=== PATIENT | male | born 1990 | race Caucasian/White ===

== ENCOUNTER 2017-11-12 23:11 | Inpatient (IN) | payer SELFPAY ==
[~2017-11-12] VITALS: Ht 172.7 cm; Wt 52.6 kg
[2017-11-12 23:32] VITALS: BP 120/59; PULSE 129; RESP 20; TEMP 98; O2SAT 96
--- NOTE | 2017-11-12 23:52 | PD ---
HPI Chief Complaint: GI Complaint Time Seen by Provider: 23:50 Travel History International Travel<30 days: No Contact w/Intl Traveler<30days: No Traveled to known affect area: No History of Present Illness HPI Family gives most of the history as the patient was actively vomiting. Apparently for about the past week or so the patient has had a dry cough. Follow by nausea and vomiting over the last 2 days or so. Per family the patient has not been able to tolerate any p.o. over the last 2 days. Per family has not missed any of his sliding scale insulin. Prior to all of this happening the patient denies having any type of headache visual changes chest pain abdominal pain or back pain. However during the episodes of nausea vomiting he did discover that he had epigastric area pain. Epigastric pain was sharp, and sometimes radiated toward his back, tender to palpation, and it did not seem to have any alleviating or aggravating factors. No known drug allergy Past medical history significant for as aspergers disease, seizures, diabetes, ADHD, and bilateral tympanostomy tubes PFSH Past Medical History ADHD: Yes Diabetes: Yes Patient Takes Glucophage: No Diminished Hearing: No Neurologic: Yes (hypertonia, terets, asburgers) Seizures: Yes Tetanus Vaccination: Unknown Influenza Vaccination: No Past Surgical History Tympanostomy Tube: Yes (in b/l ears) Social History Alcohol Use: No Tobacco Use: No Substance Use: No Allergies-Medications (Allergen,Severity, Reaction): Coded Allergies: No Known Allergies (Unverified , 11/12/17) Reported Meds & Prescriptions Reported Meds & Active Scripts Active Reported Lantus Inj (Insulin Glargine) 1,000 Unit/10 Ml Vial 10 Units SQ HS Novolog Flexpen Inj (Insulin Aspart) 300 Unit/3 Ml Pen 5 Units SQ Review of Systems General / Constitutional: No: Fever Eyes: No: Visual changes HENT: No: Headaches Cardiovascular: No: Chest Pain or Discomfort Respiratory: No: Shortness of Breath Gastrointestinal: Positive: Nausea, Vomiting Genitourinary: No: Dysuria Musculoskeletal: No: Pain Skin: No Rash Neurologic: No: Weakness Psychiatric: No: Depression Endocrine: No: Polydipsia Hematologic/Lymphatic: No: Easy Bruising Physical Exam Narrative GENERAL: SKIN: Warm and dry. HEAD: Atraumatic. Normocephalic. EYES: Pupils equal and round. No scleral icterus. No injection or drainage. ENT: No nasal bleeding or discharge. Mucous membranes pink and moist. NECK: Trachea midline. No JVD. CARDIOVASCULAR: Regular rate and rhythm. RESPIRATORY: No accessory muscle use. Clear to auscultation. Breath sounds equal bilaterally. GASTROINTESTINAL: Abdomen soft, non-tender, nondistended. MUSCULOSKELETAL: Extremities without clubbing, cyanosis, or edema. No obvious deformities. NEUROLOGICAL: Awake and alert. No obvious cranial nerve deficits. Motor grossly within normal limits. Five out of 5 muscle strength in the arms and legs. Normal speech. PSYCHIATRIC: Appropriate mood and affect; insight and judgment normal. Data Data Last Documented VS Vital Signs Date Time Temp Pulse Resp B/P (MAP) Pulse Ox O2 Delivery O2 Flow Rate FiO2 11/12/17 23:32 98.0 129 20 120/59 (79) 96 Orders Orders Water Treatment Technician / Telemetry [id number] (11/12/17 23:53) ^ Insert Iv (11/12/17 23:53) Lipase (11/12/17 23:53) Troponin I (11/12/17 23:53) Complete Blood Count With Diff (11/12/17 23:53) Comprehensive Metabolic Panel (11/12/17 23:53) Beta Hydroxybutyrate (Acetone) (11/12/17 23:53) Sodium Chlor 0.9% 1000 Ml Inj (Ns 1000 M (11/12/17 23:53) Sodium Chlor 0.9% 1000 Ml Inj (Ns 1000 M (11/12/17 23:53) Urinalysis - C+S If Indicated (11/12/17 23:53) Chest, Single Ap (11/12/17 ) Blood Gas Venous (Vbg) (11/12/17 23:53) Sodium Chlor 0.9% 1000 Ml Inj (Ns 1000 M (11/13/17 01:00) Sodium Chlor 0.9% 250 Ml Inj (Ns 250 Ml (11/13/17 01:00) Admit Order (Ed Use Only) (11/13/17 02:32) Labs Laboratory Tests Test 11/13/17 00:00 11/13/17 00:02 White Blood Count 29.2 TH/MM3 Red Blood Count 6.19 MIL/MM3 Hemoglobin 18.6 GM/DL Hematocrit 53.6 % Mean Corpuscular Volume 86.6 FL Mean Corpuscular Hemoglobin 30.0 PG Mean Corpuscular Hemoglobin Concent 34.6 % Red Cell Distribution Width 13.6 % Platelet Count 748 TH/MM3 Mean Platelet Volume 8.5 FL Neutrophils (%) (Auto) 92.0 % Lymphocytes (%) (Auto) 2.8 % Monocytes (%) (Auto) 5.1 % Eosinophils (%) (Auto) 0.0 % Basophils (%) (Auto) 0.1 % Neutrophils # (Auto) 26.8 TH/MM3 Lymphocytes # (Auto) 0.8 TH/MM3 Monocytes # (Auto) 1.5 TH/MM3 Eosinophils # (Auto) 0.0 TH/MM3 Basophils # (Auto) 0.0 TH/MM3 CBC Comment AUTO DIFF Differential Comment AUTO DIFF CONFIRMED Blood Urea Nitrogen 43 MG/DL Creatinine 4.41 MG/DL Random Glucose 179 MG/DL Total Protein 11.0 GM/DL Albumin 4.7 GM/DL Calcium Level 10.3 MG/DL Alkaline Phosphatase 350 U/L Aspartate Amino Transf (AST/SGOT) 44 U/L Alanine Aminotransferase (ALT/SGPT) 50 U/L Total Bilirubin 0.4 MG/DL Sodium Level 144 MEQ/L Potassium Level 3.8 MEQ/L Chloride Level 103 MEQ/L Carbon Dioxide Level 19.7 MEQ/L Anion Gap 21 MEQ/L Estimat Glomerular Filtration Rate 16 ML/MIN Troponin I LESS THAN 0.02 NG/ML Lipase 1064 U/L B-Hydroxybutyrate 1.12 MMOL/L Blood Gas Puncture Site LINE Blood Gas Patient Temperature 98.6 Venous Blood pH 7.35 Venous Blood Partial Pressure CO2 39 mmHg Venous Blood Partial Pressure O2 43 mmHg Venous Blood HCO3 21 mmol/L Venous Blood Oxygen Saturation 74 % Venous Blood Oxygen Content 18.1 Vol % Venous Blood Base Excess -3.9 mmol/L Oxygen Delivery Device ROOM AIR Blood Gas Inspired Oxygen 21 % [facility] Medical Decision Making Medical Screen Exam Complete: Yes Emergency Medical Condition: Yes Medical Record Reviewed: Yes Differential Diagnosis Gastritis versus DKA versus hyperglycemia versus hyperosmolar versus pancreatitis versus hepatitis Narrative Course Patient was found to have leukocytosis of 29,000, with a 92% neutrophilia. Hemoconcentration of 18.6/53.6, platelet count of 748,000 Beta hydroxybutyrate is elevated at 1.12 Venous blood gas shows pH of 7.35 Chemistry has multiple abnormalities as follows: Bicarb of 19 anion gap of 21 BUN of 43, creatinine of 4.41, estimated GFR 16, random glucose of 179, total bilirubin within normal limits alk phos elevated at 350, however AST and ALT were not significantly elevated and they showed an AST of 44 ALT of 50. However lipase was elevated at 1064 consistent with early pancreatitis Chest x-ray read by radiologist as no acute cardiopulmonary process. Critical Care Narrative CRITICAL CARE NOTE: With evaluation of the patient, labs, EKG, receipt of radiologic studies, administration of medications, reevaluation the patient and discussion of the patient with the admitting physicians, the total critical care time was [45] minutes. Time to perform other separately billable procedures was not included in the critical care time. Diagnosis Primary Impression: Pancreatitis Qualified Codes: K85.90 - Acute pancreatitis without necrosis or infection, unspecified Additional Impressions: ZACK (acute kidney injury) Dehydration Borderline compensated DKA Admitting Information Admitting Physician Requests: Admit Edson Winter MD Nov 12, 2017 23:52
[2017-11-12] MEDS ORDERED: SODIUM CHLOR 0.9% 1000 ML INJ 1,000 ML IV SCH (23:53)
[2017-11-13] VITALS (25 sets, daily range): BP systolic 112–122; BP diastolic 60–95; PULSE 66–111; RESP 14–18; TEMP 97.7–98.6; O2SAT 96–98
[2017-11-13] MEDS: SODIUM CHLOR 0.9% 1000 ML INJ 1,000 ML IV SCH ×2 (00:04→00:53)
--- NOTE | 2017-11-13 00:14 | RADRPT ---
EXAM DATE/TIME: 11/13/2017 00:00 [facility] COMPARISON: No previous studies available for comparison. INDICATIONS : Chest pain from a day's worth of vomiting. MEDICAL HISTORY : None. SURGICAL HISTORY : None. ENCOUNTER: Initial ACUITY: 1 day PAIN SCORE: 3/10 LOCATION: Bilateral chest FINDINGS: A single view of the chest demonstrates the lungs to be symmetrically aerated without evidence of mas s, infiltrate or effusion. The cardiomediastinal contours are unremarkable. Osseous structures are intact. CONCLUSION: No acute cardiopulmonary process. Corwin Verduzco MD on November 13, 2017 at 0:11 Board Certified Radiologist. This report was verified electronically.
[2017-11-13 00:19] LABS: AUTOMATED NEUTROPHIL # 26.8 TH/MM3 (1.8-7.7); BASOPHIL % 0.1 % (0.0-2.0); HEMATOCRIT 53.6 % (39.0-51.0); HEMOGLOBIN 18.6 GM/DL (13.0-17.0); LYMPH % 2.8 % (9.0-44.0); LYMPHOCYTE # 0.8 TH/MM3 (1.0-4.8); MEAN CELL VOLUME 86.6 FL (80.0-100.0); MEAN CORPUSCULAR HGB CONC 34.6 % (32.0-36.0); MEAN PLATELET VOLUME 8.5 FL (7.0-11.0); MONO % 5.1 % (0.0-8.0); MONOCYTE # 1.5 TH/MM3 (0-0.9); PLATELET COUNT 748 TH/MM3 (150-450); RED BLOOD COUNT 6.19 MIL/MM3 (4.50-5.90); RED CELL DISTRIBUTION WIDTH 13.6 % (11.6-17.2); WHITE BLOOD COUNT 29.2 TH/MM3 (4.0-11.0)
[2017-11-13 00:36] LABS: ALBUMIN 4.7 GM/DL (3.4-5.0); ALT (GPT) 50 U/L (12-78); AST (GOT) 44 U/L (15-37); BICARBONATE 19.7 MEQ/L (21.0-32.0); BLOOD UREA NITROGEN 43 MG/DL (7-18); CALCIUM 10.3 MG/DL (8.5-10.1); CHLORIDE 103 MEQ/L (98-107); CREATININE 4.41 MG/DL (0.60-1.30); GLOMERULAR FILTRATION RATE 16 ML/MIN (>89); GLUCOSE,RANDOM 179 MG/DL (74-106); SODIUM (NA) 144 MEQ/L (136-145)
[2017-11-13 00:40] LABS: ALKALINE PHOSPHATASE 350 U/L (45-117); TOTAL BILIRUBIN ADULT 0.4 MG/DL (0.2-1.0); TROPONIN I LESS THAN 0.02 NG/ML (0.02-0.05)
[2017-11-13] MEDS ORDERED: SODIUM CHLOR 0.9% 1000 ML INJ 1,000 ML IV ONE (01:00)
[2017-11-13] MEDS ORDERED: SODIUM CHLOR 0.9% 250 ML INJ 250 ML IV ONE (01:00)
[2017-11-13] MEDS ORDERED: LANTUS2P SQ (01:34)
[2017-11-13] MEDS ORDERED: NOVOINJ3 SQ (01:34)
[2017-11-13] MEDS ORDERED: BISACODYL 10 MG SUPP RECTAL PRN (02:45)
[2017-11-13] MEDS ORDERED: ACETAMINOPHEN/HYDROcodone 325 MG/5 MG TAB PO PRN (02:45)
[2017-11-13] MEDS ORDERED: SENNOSIDES 8.6 MG TAB PO PRN (02:45)
[2017-11-13] MEDS ORDERED: PROCHLORPERAZINE INJ 10 MG/2 ML VIAL IV PUSH PRN (02:45)
[2017-11-13] MEDS ORDERED: SODIUM CHLORIDE 0.9% FLUSH 10 ML FLUSH IV FLUSH PRN (02:45)
[2017-11-13] MEDS ORDERED: ONDANSETRON HCL 4 MG/2 ML VIAL IVP PRN (02:45)
[2017-11-13] MEDS ORDERED: LACTULOSE SYRUP 20 GM/30 ML CUP PO PRN (02:45)
[2017-11-13] MEDS ORDERED: GLUCAGON 1 MG/ML VIAL OTHER PRN (02:45)
[2017-11-13] MEDS ORDERED: MAGNESIUM HYDROXIDE SUSP 30 ML CUP PO PRN (02:45)
[2017-11-13] MEDS ORDERED: DEXTROSE 50% IN WATER 50 ML VIAL(D50) IV PUSH PRN (02:45)
[2017-11-13] MEDS ORDERED: ACETAMINOPHEN 325 MG TAB PO PRN (02:45)
[2017-11-13] MEDS ORDERED: ACETAMINOPHEN/HYDROcodone 325 MG/10 MG TAB PO PRN (02:45)
--- NOTE | 2017-11-13 03:24 | HHI.HP ---
[facility] Service [facility] Primary Care Physician No Primary Care Physician Admission Diagnosis PANCREATITIS, DEHYDRATION, COMPENSATED ANION GAP ACIDOSIS Diagnoses: (1) DM (diabetes mellitus) Diagnosis: Principal (2) Dehydration Diagnosis: Principal (3) Pancreatitis Diagnosis: Principal (4) ZACK (acute kidney injury) Diagnosis: Principal (5) Intractable nausea and vomiting Diagnosis: Principal Travel History International Travel<30 Days: No Contact w/Intl Traveler <30 Da: No Traveled to Known Affected Are: No History of Present Illness This is a 27-year-old male with PMH of ADHD and DM who is brought to the ER by family secondary to nausea and vomiting. Mother/father at bedside state pt has had ongoing nausea/vomiting x2 days, unable to take PO. On Lantus 10u qhs which he continues to take, compliant w/ medications. Family concerned that pt may be in DKA. Patient providing little history due to ongoing nausea and vomiting. Denies fever, chills, diarrhea, cough or chest pain. On arrival, BP 120/59, HR 129, O2 sat 96% on RA, Afebrile. WBC 29.2. Hemoglobin 18.6. CO2 19.7. ABG 21. BUN 43, creatinine 4.41, no previous labs for comparison. GFR 16. Calcium 10.3. Lipase 1064. Beta hydroxy 1.12. ABG pH 7.35. CXR with no acute findings. S/p IVF/Zofran in ER w/ some improvement. Review of Systems Except as stated in HPI: all other systems reviewed are Neg ROS: 14 point review of systems otherwise negative. Past Family Social History Past Medical History PMH: ADHD and DM Past Surgical History PAST SURGICAL HISTORY: Tympanostomy Tubes Allergies: Coded Allergies: No Known Allergies (Unverified , 11/12/17) Family History PAST FAMILY HISTORY: Reviewed. No h/o DM or CAD Social History PAST SOCIAL HISTORY: Negative for alcohol, tobacco or drugs Physical Exam Vital Signs Vital Signs Date Time Temp Pulse Resp B/P (MAP) Pulse Ox O2 Delivery O2 Flow Rate FiO2 11/12/17 23:32 98.0 129 20 120/59 (79) 96 Physical Exam PE: GENERAL: Young thin white male in no acute distress, emesis basin in hand, persistent nausea with occasional vomiting. Mother/father at bedside. HEENT: PERRLA, EOMI. No scleral icterus or conjunctival pallor. No lid lag or facial droop. CARDIOVASCULAR: Regular rate and rhythm. No obvious murmurs to auscultation. No chest tenderness to palpation. RESPIRATORY: No obvious rhonchi or wheezing. Clear to auscultation. Breath sounds equal bilaterally. GASTROINTESTINAL: Abdomen soft, non-tender, nondistended. BS normal. MUSCULOSKELETAL: Extremities without clubbing, cyanosis, or edema. No obvious deformities. NEUROLOGICAL: Awake, alert and oriented x4. No focal neurologic deficits. Moving both upper and lower extremities spontaneously. Laboratory Laboratory Tests Test 11/13/17 00:00 11/13/17 00:02 White Blood Count 29.2 Red Blood Count 6.19 Hemoglobin 18.6 Hematocrit 53.6 Mean Corpuscular Volume 86.6 Mean Corpuscular Hemoglobin 30.0 Mean Corpuscular Hemoglobin Concent 34.6 Red Cell Distribution Width 13.6 Platelet Count 748 Mean Platelet Volume 8.5 Neutrophils (%) (Auto) 92.0 Lymphocytes (%) (Auto) 2.8 Monocytes (%) (Auto) 5.1 Eosinophils (%) (Auto) 0.0 Basophils (%) (Auto) 0.1 Neutrophils # (Auto) 26.8 Lymphocytes # (Auto) 0.8 Monocytes # (Auto) 1.5 Eosinophils # (Auto) 0.0 Basophils # (Auto) 0.0 CBC Comment AUTO DIFF Differential Comment AUTO DIFF CONFIRMED Blood Urea Nitrogen 43 Creatinine 4.41 Random Glucose 179 Total Protein 11.0 Albumin 4.7 Calcium Level 10.3 Alkaline Phosphatase 350 Aspartate Amino Transf (AST/SGOT) 44 Alanine Aminotransferase (ALT/SGPT) 50 Total Bilirubin 0.4 Sodium Level 144 Potassium Level 3.8 Chloride Level 103 Carbon Dioxide Level 19.7 Anion Gap 21 Estimat Glomerular Filtration Rate 16 Troponin I LESS THAN 0.02 Lipase 1064 B-Hydroxybutyrate 1.12 Blood Gas Puncture Site LINE Blood Gas Patient Temperature 98.6 Venous Blood pH 7.35 Venous Blood Partial Pressure CO2 39 Venous Blood Partial Pressure O2 43 Venous Blood HCO3 21 Venous Blood Oxygen Saturation 74 Venous Blood Oxygen Content 18.1 Venous Blood Base Excess -3.9 Oxygen Delivery Device ROOM AIR Blood Gas Inspired Oxygen 21 Result Diagram: 11/13/17 0000 11/13/17 0000 Caprini VTE Risk Assessment Caprini VTE Risk Assessment: No/Low Risk (score <= 1) Caprini Risk Assessment Model Point Value = 1 Point Value = 2 Point Value = 3 Point Value = 5 Age 41-60 Minor surgery BMI > 25 kg/m2 Swollen legs Varicose veins or History of unexplained or recurrent spontaneous Oral contraceptives or hormone replacement Sepsis (< 1 month) Serious lung disease, including pneumonia (< 1 month) Abnormal pulmonary function Acute myocardial infarction Congestive heart failure (< 1 month) History of inflammatory bowel disease Medical patient at bed rest Age 61-74 Arthroscopic surgery Major open surgery (> 45 min) Laparoscopic surgery (> 45 min) Malignancy Confined to bed (> 72 hours) Immobilizing plaster cast Central venous access Age >= 75 History of VTE Family history of VTE Factor V Leiden Prothrombin [id number] Lupus anticoagulant Anticardiolipin antibodies Elevated serum homocysteine Heparin-induced thrombocytopenia Other congenital or acquired thrombophilia Stroke (< 1 month) Elective arthroplasty Hip, pelvis, or leg fracture Acute spinal cord injury (< 1 month) Prophylaxis Regimen Total Risk Factor Score Risk Level Prophylaxis Regimen 0-1 Low Early ambulation 2 Moderate Order ONE of the following: *Sequential Compression Device (SCD) *Heparin 5000 units SQ BID 3-4 Higher Order ONE of the following medications: *Heparin 5000 units SQ TID *Enoxaparin/Lovenox 40 mg SQ daily (WT < 150 kg, CrCl > 30 mL/min) *Enoxaparin/Lovenox 30 mg SQ daily (WT < 150 kg, CrCl > 10-29 mL/min) *Enoxaparin/Lovenox 30 mg SQ BID (WT < 150 kg, CrCl > 30 mL/min) AND/OR *Sequential Compression Device (SCD) 5 or more Highest Order ONE of the following medications: *Heparin 5000 units SQ TID (Preferred with Epidurals) *Enoxaparin/Lovenox 40 mg SQ daily (WT < 150 kg, CrCl > 30 mL/min) *Enoxaparin/Lovenox 30 mg SQ daily (WT < 150 kg, CrCl > 10-29 mL/min) *Enoxaparin/Lovenox 30 mg SQ BID (WT < 150 kg, CrCl > 30 mL/min) AND *Sequential Compression Device (SCD) Assessment and Plan Problem List: (1) Intractable nausea and vomiting ICD Code: R11.2 - Nausea with vomiting, unspecified (2) Dehydration ICD Code: E86.0 - Dehydration (3) ZACK (acute kidney injury) ICD Code: N17.9 - Acute kidney failure, unspecified (4) Pancreatitis ICD Code: K85.90 - Acute pancreatitis without necrosis or infection, unspecified (5) DM (diabetes mellitus) ICD Code: E11.9 - Type 2 diabetes mellitus without complications Assessment and Plan A/P: 1. Intractable Nausea/Vomiting: family notes symptoms x2 days, unable to take PO. Zofran w/ minimal improvement, continue w/ Zofran, add Compazine/Tigan if needed. IVF for hydration. 2. Pancreatitis: Lipase 1064, +nausea/vomiting, LFTs essentially normal except ALP 350, Total bili normal, continue IVF, analgesics/antiemetics as needed. 3. ZACK: Creatinine 4.41, no previous labs for comparison, family unsure baseline renal function. Check Renal US, check U/a, IVF for hydration, consult Nephrology for further recommendations. 4. Dehydration: Severe, w/ hemoconcentration, Hgb 18.6, aggressive IVF for hydration, repeat labs in am. 5. DM: Uncontrolled. On Lantus 10u qhs, compliant w/ meds. +metabolic acidosis, B-hydroxy 1.12, CO2 19.7, will continue w/ aggressive IVF, monitor electrolytes, repeat BMP/Mg in am. Check Hgb A1c. 6. DVT Prophylaxis: SCD/Teds 7. Social work for d/c planning as needed. 8. Case discussed w/ ER physician at length, labs/records/imaging reviewed by me. Physician Certification 2 Midnight Certification Type: Admission for Inpatient Services Order for Inpatient Services The services are ordered in accordance with Medicare regulations or non- Medicare payer requirements, as applicable. In the case of services not specified as inpatient-only, they are appropriately provided as inpatient services in accordance with the 2-midnight benchmark. Estimated LOS (days): 2 days is the estimated time the patient will need to remain in the hospital, assuming treatment plan goals are met and no additional complications. Post-Hospital Plan: Not yet determined Abby Ba MD Nov 13, 2017 03:24
[2017-11-13] MEDS ORDERED: DEXT 5%-NACL 0.9% 1000 ML INJ 1,000 ML IV SCH (04:45)
[2017-11-13] MEDS: DOCUSATE SODIUM 50 MG/SENNA 8.6 MG TAB PO SCH ×2 (08:30→21:00)
[2017-11-13] MEDS: INSULIN ASPART SUPPLEMENTAL SCALE SQ SCH ×4 (08:30→21:24)
[2017-11-13] MEDS: SODIUM CHLORIDE 0.9% FLUSH 10 ML FLUSH IV FLUSH SCH ×2 (08:30→21:00)
--- NOTE | 2017-11-13 08:38 | RADRPT ---
EXAM DATE/TIME: 11/13/2017 07:57 [facility] COMPARISON: No previous studies available for comparison. INDICATIONS : Increased BUN/Creatinine. Nausea and vomiting. MEDICAL HISTORY : Tourette Syndrome. Asbergers. Diabetes. Attention Deficit Hyperactivity disorder. Hypertonia. SURGICAL HISTORY : Tympanostomy. ENCOUNTER: Initial ACUITY: 2 days PAIN SCORE: 10 LOCATION: Bilateral flank MEASUREMENTS: RIGHT KIDNEY: 9.5 x 4.2 x 3.6 cm LEFT KIDNEY: 10.2 x 4.5 x 3.9 cm FINDINGS: RIGHT KIDNEY: Renal cortex is normal in thickness and echotexture. No hydronephrosis, stone, or mass. LEFT KIDNEY: Renal cortex is normal in thickness and echotexture. No hydronephrosis, stone, or mass. BLADDER: Within normal limits given the degree of distension. CONCLUSION: Negative renal ultrasound examination. Mykel Us MD on November 13, 2017 at 8:34 Board Certified Radiologist. This report was verified electronically.
[2017-11-13] MEDS: SODIUM CHLOR 0.45% 1000 ML INJ 1,000 ML IV SCH (10:05)
--- NOTE | 2017-11-13 11:24 | PD.CONS ---
HPI Service Nephrology Consult Requested By Reason for Consult Acute Renal Failure Primary Care Physician No Primary Care Physician History of Present Illness This is a 27 y/o admitted to hospital for intractable nausea/vomiting. He has a hx of DM , Asperger's syndrome, and ADHD. He was unable to take PO medications but reportedly did not miss any doses of insulin. We have no baseline labs for comparison. On arrival his he has leukocytosis at 29.2, BUN 43, Creatinine 4.41. CO2 19, Anion gap 21, Lipase 1064, and BG 129 m/dL. His renal US is unremarkable. He is on D5NS @ 200 cc/hr. We were consulted to assist with management. (Winsome Frazier) Review of Systems Gastrointestinal: COMPLAINS OF: Nausea, Vomiting, DENIES: Abdominal pain, Difficulty Swallowing (Winsome Frazier) Past Family Social History Allergies: Coded Allergies: No Known Allergies (Unverified , 11/12/17) Past Medical History DM II Seizures Asperger's ADHD Past Surgical History Tympanostomy Tubes Reported Medications Unknown Active Ordered Medications Current Medications Medications (Trade) Dose Ordered Sig/Reinier Route Start Time Stop Time Status Last Admin (D50w (Vial) Inj) 50 ml UNSCH PRN IV PUSH 11/13/17 02:45 (Glucagon Inj) 1 mg UNSCH PRN OTHER 11/13/17 02:45 (NovoLOG SUPPLEMENTAL SCALE) 1 ACHS SLIDING SCALE SQ 11/13/17 08:00 11/13/17 08:30 (NS Flush) 2 ml UNSCH PRN IV FLUSH 11/13/17 02:45 (NS Flush) 2 ml BID IV FLUSH 11/13/17 09:00 (Zofran Inj) 4 mg Q6H PRN IVP 11/13/17 02:45 11/13/17 03:24 (Tylenol) 650 mg Q6H PRN PO 11/13/17 02:45 (Lanett 5-325 Mg) 1 tab Q4H PRN PO 11/13/17 02:45 (Lanett 10-325 Mg) 1 tab Q4H PRN PO 11/13/17 02:45 (Sadie-Colace) 1 tab BID PO 11/13/17 09:00 (Milk Of Magnesia Liq) 30 ml Q12H PRN PO 11/13/17 02:45 (Senokot) 17.2 mg Q12H PRN PO 11/13/17 02:45 (Dulcolax Supp) 10 mg DAILY PRN RECTAL 11/13/17 02:45 (Lactulose Liq) 30 ml DAILY PRN PO 11/13/17 02:45 (Compazine Inj) 10 mg Q6H PRN IV PUSH 11/13/17 02:45 11/13/17 04:25 (Levemir Inj) 10 units HS SQ 11/13/17 21:00 Sodium Chloride 1,000 ml @ 75 mls/hr [id number] IV 11/13/17 10:00 11/13/17 10:05 Family History No hx renal impairment Social History Lives with parent Unemployed Ambulatory No smoking or ETOH (Winsome Frazier) Physical Exam Vital Signs Vital Signs Date Time Temp Pulse Resp B/P (MAP) Pulse Ox O2 Delivery O2 Flow Rate FiO2 11/13/17 09:03 98.3 110 14 113/64 (80) 96 11/13/17 06:00 111 11/13/17 05:00 106 11/13/17 04:00 110 11/13/17 03:40 98.6 103 18 112/78 (89) 98 11/13/17 03:30 104 11/12/17 23:32 98.0 129 20 120/59 (79) 96 Physical Exam Young male, awake and alert follows commands Lungs clear, no rales or rhonchi Abd flat, soft, non tender S1/S2, RRR No edema, skin intact, distal pulses strong. Laboratory Laboratory Tests Test 11/13/17 00:00 11/13/17 00:02 White Blood Count 29.2 Red Blood Count 6.19 Hemoglobin 18.6 Hematocrit 53.6 Mean Corpuscular Volume 86.6 Mean Corpuscular Hemoglobin 30.0 Mean Corpuscular Hemoglobin Concent 34.6 Red Cell Distribution Width 13.6 Platelet Count 748 Mean Platelet Volume 8.5 Neutrophils (%) (Auto) 92.0 Lymphocytes (%) (Auto) 2.8 Monocytes (%) (Auto) 5.1 Eosinophils (%) (Auto) 0.0 Basophils (%) (Auto) 0.1 Neutrophils # (Auto) 26.8 Lymphocytes # (Auto) 0.8 Monocytes # (Auto) 1.5 Eosinophils # (Auto) 0.0 Basophils # (Auto) 0.0 CBC Comment AUTO DIFF Differential Comment AUTO DIFF CONFIRMED Blood Urea Nitrogen 43 Creatinine 4.41 Random Glucose 179 Total Protein 11.0 Albumin 4.7 Calcium Level 10.3 Alkaline Phosphatase 350 Aspartate Amino Transf (AST/SGOT) 44 Alanine Aminotransferase (ALT/SGPT) 50 Total Bilirubin 0.4 Sodium Level 144 Potassium Level 3.8 Chloride Level 103 Carbon Dioxide Level 19.7 Anion Gap 21 Estimat Glomerular Filtration Rate 16 Troponin I LESS THAN 0.02 Lipase 1064 B-Hydroxybutyrate 1.12 Blood Gas Puncture Site LINE Blood Gas Patient Temperature 98.6 Venous Blood pH 7.35 Venous Blood Partial Pressure CO2 39 Venous Blood Partial Pressure O2 43 Venous Blood HCO3 21 Venous Blood Oxygen Saturation 74 Venous Blood Oxygen Content 18.1 Venous Blood Base Excess -3.9 Oxygen Delivery Device ROOM AIR Blood Gas Inspired Oxygen 21 (Winsome Frazier) Result Diagram: 11/13/17 0000 11/13/17 0000 Imaging Last 72 hours Impressions Renal Ultrasound 11/13/17 0000 Signed Impressions: Service Date/Time: Monday, November 13, 2017 07:57 - CONCLUSION: Negative renal ultrasound examination. Mykel Us MD Chest X-Ray 11/12/17 Signed Impressions: Service Date/Time: Monday, November 13, 2017 00:00 - CONCLUSION: No acute cardiopulmonary process. Corwin Verduzco MD (Winsome Frazier) Assessment and Plan Problem List: (1) ZACK (acute kidney injury) ICD Codes: N17.9 - Acute kidney failure, unspecified Plan: No baseline labs available for comparison. He denies hx of renal impairment US is negative for abnormalities ZACK due to prerenal azotemia, intravascular volume depletion secondary to vomiting and hyperglycemia Obtain UA Change IVF to 1/2 NS @ 75 cc/hr Repeat labs daily Avoid nephrotoxic agents, renally dose when appropriate PO fluids as tolerated (2) Intractable nausea and vomiting ICD Codes: R11.2 - Nausea with vomiting, unspecified Plan: Most likely due to pancreatitis IVF and antiemetics as needed (3) Dehydration ICD Codes: E86.0 - Dehydration Plan: See above continue hydration. (4) DM (diabetes mellitus) ICD Codes: E11.9 - Type 2 diabetes mellitus without complications Plan: Maintain glucose 140-180 mg/dL while admitted Obtain A1c (Winsome Frazier) Assessment and Plan patient was seen and examined on 11/13/17. Agree with above assessment and plan. ZACK likely due to dehydration. (Joseph Allred MD) Winsome Frazier Nov 13, 2017 11:23 Joseph Allred MD November 14, 2017 11:22
[2017-11-13 12:54] LABS: BILIRUBIN, URINE NEG (NEG); BLOOD, URINE NEG (NEG); GLUCOSE,URINE 1000 mg/dL (NEG); HYALINE CAST, URINE 5 /lpf (RARE); KETONE, URINE 40 mg/dL (NEG); MUCUS URINE FEW /lpf (OCC); NITRITE,URINE NEG (NEG); SQUAMOUS EPITHELIAL CELL URINE <1 /hpf (0-5); URINE COLOR LIGHT-YELLOW (YELLW/STRAW); URINE LEUKOCYTE ESTERASE NEG (NEG)
--- NOTE | 2017-11-13 15:22 | HHI.PR ---
Addendum to Inpatient Note Additional Information Patient says he is feeling better. No more nausea or vomiting. Abdominal pain is a lot improved. Denies any chest pain or shortness of breath. He was able to eat some lunch 1. Intractable Nausea/Vomiting: family notes symptoms x2 days, unable to take PO. Today feeling a lot better. Zofran w/ minimal improvement, continue w/ Zofran, and Compazine/Tigan if needed. IVF for hydration. 2. Pancreatitis: Lipase 1064, +nausea/vomiting, LFTs essentially normal except ALP 350, Total bili normal, continue IVF, analgesics/antiemetics as needed. 3. ZACK: Creatinine 4.41, no previous labs for comparison, family unsure baseline renal function. Renal US reviewed which was negative, U/a negative for UTI, IVF for hydration, Nephrology following. 4. Dehydration: Severe, w/ hemoconcentration, Hgb 18.6, aggressive IVF for hydration, repeat labs in am. 5. DM: Uncontrolled. On Lantus 10u qhs, compliant w/ meds. +metabolic acidosis, B-hydroxy 1.12, CO2 19.7, continue w/ aggressive IVF, monitor electrolytes, repeat BMP/Mg in am. Check Hgb A1c. 6. DVT Prophylaxis: SCD/Magy Rangel MD Nov 13, 2017 15:22
[2017-11-13 16:58] LABS: HEMOGLOBIN A1C 10.7 % (4.3-6.0)
[2017-11-13 17:10] LABS: BICARBONATE 24.2 MEQ/L (21.0-32.0); BLOOD UREA NITROGEN 16 MG/DL (7-18); CALCIUM 8.5 MG/DL (8.5-10.1); CHLORIDE 113 MEQ/L (98-107); CREATININE 1.05 MG/DL (0.60-1.30); GLOMERULAR FILTRATION RATE 84 ML/MIN (>89); GLUCOSE,RANDOM 120 MG/DL (74-106); MAGNESIUM 2.4 MG/DL (1.5-2.5); SODIUM (NA) 148 MEQ/L (136-145)
[2017-11-13] MEDS ORDERED: POTASSIUM CHLORIDE 20 MEQ CONTROLLED RELEASE TAB PO ONE (18:00)
[2017-11-13] MEDS ORDERED: POTASSIUM CHLORIDE 20 MEQ PWD PACKET PO ONE (19:00)
[2017-11-13] MEDS ORDERED: INSULIN DETEMIR 100 UNITS/ML VIAL SQ SCH (21:00)
[2017-11-14] VITALS (19 sets, daily range): BP systolic 113–135; BP diastolic 63–84; PULSE 72–87; RESP 14–21; TEMP 97.5–98.4; O2SAT 96–100
[2017-11-14] MEDS: SODIUM CHLOR 0.45% 1000 ML INJ 1,000 ML IV SCH ×2 (00:23→13:57)
[2017-11-14 07:02] LABS: ALBUMIN 2.9 GM/DL (3.4-5.0); ALT (GPT) 40 U/L (12-78); AST (GOT) 72 U/L (15-37); BICARBONATE 26.7 MEQ/L (21.0-32.0); BLOOD UREA NITROGEN 8 MG/DL (7-18); CALCIUM 8.3 MG/DL (8.5-10.1); CHLORIDE 111 MEQ/L (98-107); CREATININE 0.68 MG/DL (0.60-1.30); GLOMERULAR FILTRATION RATE 139 ML/MIN (>89); SODIUM (NA) 146 MEQ/L (136-145)
[2017-11-14 07:04] LABS: AUTOMATED NEUTROPHIL # 7.3 TH/MM3 (1.8-7.7); BASOPHIL % 0.5 % (0.0-2.0); EOSINOPHIL # 0.1 TH/MM3 (0-0.4); EOSINOPHIL % 0.6 % (0.0-4.0); GLUCOSE,RANDOM 38 MG/DL (74-106); HEMATOCRIT 37.8 % (39.0-51.0); HEMOGLOBIN 12.9 GM/DL (13.0-17.0); LYMPH % 17.2 % (9.0-44.0); LYMPHOCYTE # 1.7 TH/MM3 (1.0-4.8); MEAN CELL VOLUME 86.7 FL (80.0-100.0); MEAN CORPUSCULAR HEMOGLOBIN 29.7 PG (27.0-34.0); MEAN CORPUSCULAR HGB CONC 34.3 % (32.0-36.0); MEAN PLATELET VOLUME 8.1 FL (7.0-11.0); MONO % 6.6 % (0.0-8.0); MONOCYTE # 0.6 TH/MM3 (0-0.9); NEUT % 75.1 % (16.0-70.0); PLATELET COUNT 311 TH/MM3 (150-450); RED BLOOD COUNT 4.35 MIL/MM3 (4.50-5.90); RED CELL DISTRIBUTION WIDTH 13.4 % (11.6-17.2); WHITE BLOOD COUNT 9.8 TH/MM3 (4.0-11.0)
[2017-11-14 07:05] LABS: ALKALINE PHOSPHATASE 195 U/L (45-117); TOTAL BILIRUBIN ADULT 0.5 MG/DL (0.2-1.0); TOTAL PROTEIN 6.6 GM/DL (6.4-8.2)
[2017-11-14] MEDS: INSULIN ASPART SUPPLEMENTAL SCALE SQ SCH ×4 (08:00→21:00)
[2017-11-14] MEDS ORDERED: POTASSIUM CHLORIDE 25 MEQ EFFERVESCENT TAB PO ONE (08:45)
[2017-11-14] MEDS: DOCUSATE SODIUM 50 MG/SENNA 8.6 MG TAB PO SCH ×3 (09:00→20:46)
[2017-11-14] MEDS: SODIUM CHLORIDE 0.9% FLUSH 10 ML FLUSH IV FLUSH SCH ×2 (09:00→20:46)
--- NOTE | 2017-11-14 10:04 | HHI.NPPN ---
Subjective Renal Failure: Acute Interval History Renal function is better. States nausea is better. Tolerating PO. (Winsome Frazier) Objective Data Data Vital Signs Date Time Temp Pulse Resp B/P (MAP) Pulse Ox O2 Delivery O2 Flow Rate FiO2 11/14/17 09:11 98.2 74 14 113/77 (89) 99 11/14/17 06:00 80 11/14/17 05:00 80 11/14/17 04:00 87 11/14/17 04:00 98.4 85 18 119/69 (86) 98 11/14/17 03:00 84 11/14/17 02:00 80 11/14/17 01:00 82 11/14/17 00:00 81 11/14/17 00:00 97.6 85 18 121/80 (94) 97 11/13/17 23:00 72 11/13/17 22:00 76 11/13/17 21:00 86 11/13/17 20:00 83 11/13/17 20:00 98.2 79 16 112/81 (91) 97 11/13/17 19:00 88 11/13/17 18:00 74 11/13/17 17:00 86 11/13/17 16:00 84 11/13/17 15:22 97.8 98 18 122/60 (80) 97 11/13/17 15:00 66 11/13/17 14:00 90 11/13/17 13:00 90 11/13/17 12:29 97.7 106 16 118/95 (103) 97 11/13/17 12:00 98 11/13/17 11:00 105 (Winsome Frazier) -: 11/14/17 0518 11/14/17 0518 Imaging Last 72 hours Impressions Renal Ultrasound 11/13/17 0000 Signed Impressions: Service Date/Time: Monday, November 13, 2017 07:57 - CONCLUSION: Negative renal ultrasound examination. Mykel Us MD Chest X-Ray 11/12/17 0000 Signed Impressions: Service Date/Time: Monday, November 13, 2017 00:00 - CONCLUSION: No acute cardiopulmonary process. Corwin Verduzco MD (Winsome Frazier) Physical Exam General Appearance: Well Developed, Well Nourished, Comfortable (Winsome Frazier) Eyes Eye Exam: Pupils Equal (Winsome Frazier) Pulmonary Resp Exam: Clear Bilaterally, Breath Sounds Equal (Winsome Frazier) Cardiology CV Exam: Regular, Normal Sinus Rhythm, Good Perfusion (Winsome Frazier) Gastrointestinal/Abdomen GI Exam: Soft, Non-Tender, Bowel Sounds Present (Winsome Frazier) Musculoskeletal MS Exam: Joints Intact, Normal Gait, Normal Tone (Winsome Frazier) Integumentary Skin Exam: Clear, Warm, Dry (Winsome Frazier) Extremeties Extremities Exam: No Edema, Pedal Pulses Palpable (Winsome Frazier) Neurologic Neuro Exam: Alert, Awake, Oriented, Speech Clear, Moving All Extremities (Winsome Frazier) Psychiatric Psych Exam: Appropriate Responses (Winsome Frazier) Assessment/Plan Discussed Condition With: Patient Assessment Summary: ZACK/Acute Renal Failure Problem List: (1) ZACK (acute kidney injury) ICD Codes: N17.9 - Acute kidney failure, unspecified Plan: No baseline labs available for comparison. He denies hx of renal impairment ZACK most likely was due to prerenal azotemia, intravascular volume depletion secondary to vomiting and hyperglycemia Renal function is better. UA with trace proteinuria, no UTI Reduce IVF to 50 cc/hr, taper off for discharge purposes if PO is adequate. Avoid nephrotoxic agents, renally dose when appropriate PO fluids as tolerated to assist with treatment of hypernatremia (2) Intractable nausea and vomiting ICD Codes: R11.2 - Nausea with vomiting, unspecified Plan: Most likely due to pancreatitis IVF and antiemetics as needed (3) Dehydration ICD Codes: E86.0 - Dehydration Plan: Improved. (4) DM (diabetes mellitus) ICD Codes: E11.9 - Type 2 diabetes mellitus without complications Plan: Maintain glucose 140-180 mg/dL while admitted , hypoglycemic this AM. States PO intake is better. A1c 10.7 Plan We will sign off at this time. (Winsome Frazier) Plan patient was seen and examined, agree with above assessment and plan. (Joseph Allred MD) Winsome Frazier November 14, 2017 10:04 Joseph Allred MD November 14, 2017 11:41
--- NOTE | 2017-11-14 11:55 | HHI.PR ---
Subjective Remarks Patient states he is feeling better. No abdominal pain, nausea or vomiting. Patient did not throw up yesterday. No prior history of pancreatitis in the past per patient. Patient tells me he has no primary care physician, I am unsure how he gets his insulin. He claims he gets it [id number]. Objective Vitals Vital Signs Date Time Temp Pulse Resp B/P (MAP) Pulse Ox O2 Delivery O2 Flow Rate FiO2 11/14/17 09:11 98.2 74 14 113/77 (89) 99 11/14/17 06:00 80 11/14/17 05:00 80 11/14/17 04:00 87 11/14/17 04:00 98.4 85 18 119/69 (86) 98 11/14/17 03:00 84 11/14/17 02:00 80 11/14/17 01:00 82 11/14/17 00:00 81 11/14/17 00:00 97.6 85 18 121/80 (94) 97 11/13/17 23:00 72 11/13/17 22:00 76 11/13/17 21:00 86 11/13/17 20:00 83 11/13/17 20:00 98.2 79 16 112/81 (91) 97 11/13/17 19:00 88 11/13/17 18:00 74 11/13/17 17:00 86 11/13/17 16:00 84 11/13/17 15:22 97.8 98 18 122/60 (80) 97 11/13/17 15:00 66 11/13/17 14:00 90 11/13/17 13:00 90 11/13/17 12:29 97.7 106 16 118/95 (103) 97 11/13/17 12:00 98 I/O 11/13/17 11/13/17 11/13/17 11/14/17 11/14/17 11/14/17 07:00 15:00 23:00 07:00 15:00 23:00 Intake Total 60 ml 1000 ml 1680 ml 1240 ml Output Total 400 ml 560 ml 275 ml Balance -340 ml 1000 ml 1120 ml 965 ml Intake Oral 60 ml 1680 ml 240 ml IV Total 1000 ml 1000 ml Output Urine Total 400 ml 560 ml 275 ml Bladder Scan Volume Amount 225 ml Result Diagram: 11/14/1751711/14/17517 Imaging Last Impressions Renal Ultrasound 11/13/17 0000 Signed Impressions: Service Date/Time: Monday, November 13, 2017 07:57 - CONCLUSION: Negative renal ultrasound examination. Mykel Us MD Chest X-Ray 11/12/17 0000 Signed Impressions: Service Date/Time: Monday, November 13, 2017 00:00 - CONCLUSION: No acute cardiopulmonary process. Corwin Verduzco MD Objective Remarks GENERAL: Young thin white male laying in bed CARDIOVASCULAR: Regular rate and rhythm. No obvious murmurs to auscultation. RESPIRATORY: No wheezing. Clear to auscultation. Breath sounds equal bilaterally. GASTROINTESTINAL: Abdomen soft, non-tender, nondistended. BS normal. MUSCULOSKELETAL: Extremities without edema. No obvious deformities. NEUROLOGICAL: Moving both upper and lower extremities spontaneously. A/P Problem List: (1) Intractable nausea and vomiting ICD Code: R11.2 - Nausea with vomiting, unspecified (2) Dehydration ICD Code: E86.0 - Dehydration (3) ZACK (acute kidney injury) ICD Code: N17.9 - Acute kidney failure, unspecified (4) Pancreatitis ICD Code: K85.90 - Acute pancreatitis without necrosis or infection, unspecified (5) DM (diabetes mellitus) ICD Code: E11.9 - Type 2 diabetes mellitus without complications Assessment and Plan 1. Intractable Nausea/Vomiting: family notes symptoms x2 days, unable to take PO. Today feeling a lot better.continue antiemetics. IVF for hydration. 2. Pancreatitis: Lipase 1064, +nausea/vomiting, LFTs essentially normal except ALP 350 and mild elevation of AST, Total bili normal, continue IVF, analgesics/antiemetics as needed. check lipid profile to r/o hypertriglyceridemia, check u/s gallbladder. 3. ZACK: Creatinine 4.41, no previous labs for comparison, family unsure baseline renal function. Renal US reviewed which was negative, Cr today back to normal at 0.68. U/a negative for UTI, IVF for hydration, Nephrology following. 4. Dehydration: Severe, w/ hemoconcentration, Hgb 18.6, aggressive IVF for hydration, repeat labs in am. 5. DM: Uncontrolled. BS this morning, low at 38, pt did get juice and crackers which brought BS higher. will decrease dose of Lantus to 8u qhs, compliant w/ meds. Pt tells me he doens't have a PCP, unsure if that is the case , will consult CM for assistance as it appears he is self pay. +metabolic acidosis, B-hydroxy 1.12, CO2 19.7, now resolved. continue w/ aggressive IVF, monitor electrolytes. HbA1C 10.7 6. DVT Prophylaxis: SCD/Teds Discharge Planning transfer to med/sx floor. If continues to improve, and work-up neg, ok to d/c in AM Magy Cardozo MD November 14, 2017 11:55
--- NOTE | 2017-11-14 19:02 | RADRPT ---
EXAM DATE/TIME: 11/14/2017 18:03 [facility] COMPARISON: No previous studies available for comparison. INDICATIONS : Right upper quadrant pain. Nausea and vomiting. MEDICAL HISTORY : Seizures. Diabetes. Attention Deficit Hyperactivity Disorder. Hypertonia. Tourettes syndrome. Asperge rs SURGICAL HISTORY : Tympanostomy bilateral ears. ENCOUNTER: Initial ACUITY: 3 days PAIN SCORE: 2/10 LOCATION: Right upper quadrant MEASUREMENTS: LIVER: 17.5 cm length COMMON DUCT: 4 mm RIGHT KIDNEY: 11.1 x 4.3 x 3.8 cm FINDINGS: LIVER: Normal echotexture without focal lesion or ductal dilatation. COMMON DUCT: No intraluminal mass or stone visualized. GALLBLADDER: Contains no stones, demonstrates no wall thickening or pericholecystic fluid. PANCREAS: The visualized portions are within normal limits. RIGHT KIDNEY: No evidence of hydronephrosis, stone, or mass. CONCLUSION: Normal examination for a patient of this age. No gallstones or biliary ductal dilatation. Roberto Farnsworth MD on November 14, 2017 at 19:00 Board Certified Radiologist. This report was verified electronically.
[2017-11-14] MEDS ORDERED: INSULIN DETEMIR 100 UNITS/ML VIAL SQ SCH (21:00)
[2017-11-15] VITALS: BP 108/54; PULSE 90; RESP 21; TEMP 97.8; O2SAT 99
[2017-11-15 04:00] VITALS: BP 107/60; PULSE 75; RESP 21; TEMP 97.4; O2SAT 95
[2017-11-15 07:38] LABS: ALT (GPT) 40 U/L (12-78); AST (GOT) 41 U/L (15-37); BICARBONATE 31.7 MEQ/L (21.0-32.0); BLOOD UREA NITROGEN 11 MG/DL (7-18); CALCIUM 8.7 MG/DL (8.5-10.1); CHLORIDE 103 MEQ/L (98-107); CHOLESTEROL 175 MG/DL (120-200); CREATININE 0.73 MG/DL (0.60-1.30); GLOMERULAR FILTRATION RATE 128 ML/MIN (>89); GLUCOSE,RANDOM 93 MG/DL (74-106); SODIUM (NA) 142 MEQ/L (136-145); TRIGLYCERIDES 353 MG/DL (42-150)
[2017-11-15 07:47] LABS: ALKALINE PHOSPHATASE 220 U/L (45-117); CHOLESTEROL/ HDL RATIO 6.09 RATIO; HDL CHOLESTEROL 28.7 MG/DL (40.0-60.0); LDL CHOLESTEROL 76 MG/DL (0-99); TOTAL BILIRUBIN ADULT 0.5 MG/DL (0.2-1.0); TOTAL PROTEIN 6.9 GM/DL (6.4-8.2)
[2017-11-15] MEDS: INSULIN ASPART SUPPLEMENTAL SCALE SQ SCH (07:49)
[2017-11-15 08:03] VITALS: BP 108/68; PULSE 79; RESP 16; TEMP 97.6; O2SAT 100
[2017-11-15] MEDS: DOCUSATE SODIUM 50 MG/SENNA 8.6 MG TAB PO SCH (08:52)
[2017-11-15] MEDS: SODIUM CHLORIDE 0.9% FLUSH 10 ML FLUSH IV FLUSH SCH (08:52)
--- NOTE | 2017-11-15 09:50 | HHI.DS ---
Discharge Summary Admission Date Nov 13, 2017 at 02:34 Discharge Date: November 15, 2017 Admitting Diagnosis PANCREATITIS, DEHYDRATION, COMPENSATED ANION GAP ACIDOSIS (1) Intractable nausea and vomiting ICD Code: R11.2 - Nausea with vomiting, unspecified (2) Dehydration ICD Code: E86.0 - Dehydration (3) ZACK (acute kidney injury) ICD Code: N17.9 - Acute kidney failure, unspecified (4) Pancreatitis ICD Code: K85.90 - Acute pancreatitis without necrosis or infection, unspecified (5) DM (diabetes mellitus) ICD Code: E11.9 - Type 2 diabetes mellitus without complications Procedures None Brief History - From Admission This is a 27-year-old male with PMH of ADHD and DM who is brought to the ER by family secondary to nausea and vomiting. Mother/father at bedside state pt has had ongoing nausea/vomiting x2 days, unable to take PO. On Lantus 10u qhs which he continues to take, compliant w/ medications. Family concerned that pt may be in DKA. Patient providing little history due to ongoing nausea and vomiting. Denies fever, chills, diarrhea, cough or chest pain. On arrival, BP 120/59, HR 129, O2 sat 96% on RA, Afebrile. WBC 29.2. Hemoglobin 18.6. CO2 19.7. ABG 21. BUN 43, creatinine 4.41, no previous labs for comparison. GFR 16. Calcium 10.3. Lipase 1064. Beta hydroxy 1.12. ABG pH 7.35. CXR with no acute findings. S/p IVF/Zofran in ER w/ some improvement. CBC/BMP: 11/14/17 0518 11/15/17 0649 Significant Findings Laboratory Tests Test 11/13/17 00:00 11/13/17 00:02 11/13/17 12:35 11/13/17 15:57 White Blood Count 29.2 TH/MM3 (4.0-11.0) Red Blood Count 6.19 MIL/MM3 (4.50-5.90) Hemoglobin 18.6 GM/DL (13.0-17.0) Hematocrit 53.6 % (39.0-51.0) Platelet Count 748 TH/MM3 (150-450) Neutrophils (%) (Auto) 92.0 % (16.0-70.0) Lymphocytes (%) (Auto) 2.8 % (9.0-44.0) Neutrophils # (Auto) 26.8 TH/MM3 (1.8-7.7) Lymphocytes # (Auto) 0.8 TH/MM3 (1.0-4.8) Monocytes # (Auto) 1.5 TH/MM3 (0-0.9) Blood Urea Nitrogen 43 MG/DL (7-18) Creatinine 4.41 MG/DL (0.60-1.30) Random Glucose 179 MG/DL (74-106) 120 MG/DL (74-106) Total Protein 11.0 GM/DL (6.4-8.2) Calcium Level 10.3 MG/DL (8.5-10.1) Alkaline Phosphatase 350 U/L (45-117) Aspartate Amino Transf (AST/SGOT) 44 U/L (15-37) Carbon Dioxide Level 19.7 MEQ/L (21.0-32.0) Anion Gap 21 MEQ/L (5-15) Estimat Glomerular Filtration Rate 16 ML/MIN (>89) 84 ML/MIN (>89) Troponin I LESS THAN 0.02 NG/ML Lipase 1064 U/L (73-393) B-Hydroxybutyrate 1.12 MMOL/L (0.00-0.39) Venous Blood pH 7.35 (7.360-7.400) Venous Blood Partial Pressure CO2 39 mmHg (44-48) Venous Blood Partial Pressure O2 43 mmHg (35-40) Venous Blood HCO3 21 mmol/L (22-26) Venous Blood Oxygen Content 18.1 Vol % (9.0-17.0) Venous Blood Base Excess -3.9 mmol/L (-2-2) Urine Glucose (UA) 1000 mg/dL (NEG) Urine Ketones 40 mg/dL (NEG) Urine Mucus FEW /lpf (OCC) Sodium Level 148 MEQ/L (136-145) Potassium Level 3.3 MEQ/L (3.5-5.1) Chloride Level 113 MEQ/L (98-107) Hemoglobin A1c 10.7 % (4.3-6.0) Test 11/14/17 05:18 11/15/17 06:49 Red Blood Count 4.35 MIL/MM3 (4.50-5.90) Hemoglobin 12.9 GM/DL (13.0-17.0) Hematocrit 37.8 % (39.0-51.0) Neutrophils (%) (Auto) 75.1 % (16.0-70.0) Random Glucose 38 MG/DL (74-106) Albumin 2.9 GM/DL (3.4-5.0) 3.0 GM/DL (3.4-5.0) Calcium Level 8.3 MG/DL (8.5-10.1) Alkaline Phosphatase 195 U/L (45-117) 220 U/L (45-117) Aspartate Amino Transf (AST/SGOT) 72 U/L (15-37) 41 U/L (15-37) Sodium Level 146 MEQ/L (136-145) Potassium Level 3.1 MEQ/L (3.5-5.1) Chloride Level 111 MEQ/L (98-107) Triglycerides Level 353 MG/DL (42-150) HDL Cholesterol 28.7 MG/DL (40.0-60.0) Imaging Last Impressions Gall Bladder Ultrasound 11/14/17 0000 Signed Impressions: Service Date/Time: Tuesday, November 14, 2017 18:03 - CONCLUSION: Normal examination for a patient of this age. No gallstones or biliary ductal dilatation. Roberto Farnsworth MD Renal Ultrasound 11/13/17 0000 Signed Impressions: Service Date/Time: Monday, November 13, 2017 07:57 - CONCLUSION: Negative renal ultrasound examination. Mykel Us MD Chest X-Ray 11/12/17 0000 Signed Impressions: Service Date/Time: Monday, November 13, 2017 00:00 - CONCLUSION: No acute cardiopulmonary process. Corwin Verduzco MD PE at Discharge GENERAL: Young thin white male laying in bed CARDIOVASCULAR: Regular rate and rhythm. No obvious murmurs to auscultation. RESPIRATORY: No wheezing. Clear to auscultation. Breath sounds equal bilaterally. GASTROINTESTINAL: Abdomen soft, non-tender, nondistended. BS normal. No guarding. MUSCULOSKELETAL: Extremities without edema. No obvious deformities. NEUROLOGICAL: Moving both upper and lower extremities spontaneously. Pt update on day of discharge Patient tolerating diet, finished breakfast, no nausea, vomiting or abdominal pain. Good urine output. Hospital Course This is a 27-year-old male with history of diabetes mellitus presenting with nausea, vomiting and abdominal pain. Was diagnosed with acute pancreatitis, patient was treated conservatively, was n.p.o. for several days, symptomatic management was done. Patient also came in with acute renal failure, likely prerenal. Nephrology was consulted, renal ultrasound was negative. Creatinine is now back to normal after fluid resuscitation. Lipase has trended down, tolerating diet, ultrasound of the gallbladder negative, no hypertriglyceridemia after checking his blood work. Patient will be discharged today to home. Follow-up with primary care physician in 1 week. Pt Condition on Discharge: Good Discharge Disposition: Discharge Home Discharge Time: > 30 minutes Discharge Instructions DIET: Follow Instructions for: As Tolerated, No Restrictions Activities you can perform: Regular-No Restrictions Melissa Wells MD November 15, 2017 09:50
== END 2017-11-15 11:03 | disposition home or self-care (01) | DRG 439 ==
LOC: NEPE 23:11 → NEDA 11-13 02:34 → HCIS 11-13 03:04 → N04B 11-14 17:33
PROVIDERS: ADMIT Hospitalist; ATTEND Hospitalist
DX: K85.90 Acute pancreatitis without necrosis or infection, unspecified (principal); N17.9 Acute kidney failure, unspecified; E11.649 Type 2 diabetes mellitus with hypoglycemia without coma; E11.65 Type 2 diabetes mellitus with hyperglycemia; F84.5 Asperger's syndrome; E86.0 Dehydration; E86.9 Volume depletion, unspecified; R11.2 Nausea with vomiting, unspecified; R74.8 Abnormal levels of other serum enzymes; F90.9 Attention-deficit hyperactivity disorder, unspecified type; Z79.4 Long term (current) use of insulin
CPT/HCPCS: 71045; 76705; 76775; 80048; 80053; 80061; 81001; 82010; 82805; 82948; 83036; 83690; 83735; 84484; 85025; 96360; 96361; J0780; J1815; J2405; J7030; J7042; J7050